=== PATIENT | male | born 1985 | race Hispanic/Latino ===

== ENCOUNTER 2017-12-30 07:28 | Emergency (ER) | payer BC, OTHER ==
[~2017-12-30] VITALS: Ht 182.9 cm; Wt 133.8 kg
[2017-12-30] MEDS ORDERED: MORPHINE SULFATE 2 MG/ML SYR IM STA (07:56)
[2017-12-30] MEDS ORDERED: KETOROLAC TROMETHAMINE 60 MG/2 ML VIAL IM ONE (08:00)
[2017-12-30 08:44] VITALS: BP 126/91
== END 2017-12-30 08:58 | disposition home or self-care (01) ==
LOC: ER 07:28
DX: M54.42 Lumbago with sciatica, left side (principal)
CPT/HCPCS: 99283; J1885; J2270